=== PATIENT | female | born 1940 | race Caucasian/White ===

== ENCOUNTER 2021-01-23 08:25 | Outpatient (CLI) | payer MEDICARE, OTHER, SELFPAY ==
--- NOTE | 2021-01-23 09:01 | ECHO_ITS ---
Patient Info Name: Kira Nuno Age: 80 years : 1940 Gender: Female Ht: 62 in Wt: 164 lbs BSA: 1.83 m2 HR: 60 bpm BP: 142 / 74 mmHg Technical Quality: Good Exam Date: 01/23/2021 9:35 AM Exam Location: [facility] Patient Status: Outpatient Admit Date: 01/23/2021 Staff Ordering Physician: Madelaine Light MD Felting Machine Operator Helper: Milvia Almonte RDCS Attending Provider: Madelaine Light MD Exam Type: CA echo doppler color flow Study Info Indications - cardiac murmur Complete two-dimensional, color flow and Doppler transthoracic echocardiogram is performed. Summary 1. Complete two-dimensional, color flow and Doppler transthoracic echocardiogram is performed. 2. Left ventricular chamber dimension is normal. 3. Left ventricular systolic function is normal, estimated at 60-65%. 4. The left ventricular diastolic function is grade I diastolic dysfunction. 5. E/e' 8 is minimally elevated. 6. Thin interatrial septum with tiny left to right shunt by color flow doppler suggestive of PFO or ASD. 7. There is mild aortic valve sclerosis. 8. There is mild to moderate aortic valve regurgitation. 9. The mitral valve has mildly calcified annulus. 10. There is trace mitral valve regurgitation. 11. There is trace tricuspid valve regurgitation. 12. No pulmonary hypertension, estimated pulmonary arterial systolic pressure is 35 mmHg. Left Ventricle E/e' 8 is minimally elevated. Left ventricular chamber dimension is normal. Left ventricular systolic function is normal, estimated at 60-65%. The left ventricular diastolic function is grade I diastolic dysfunction. Right Ventricle Right ventricular chamber dimension is normal. Right ventricular systolic function is normal. Left Atria Left atrial chamber dimension is normal. Right Atria Right atrial chamber dimension is normal. Atrial Septum Suspected patent foramen ovale or atrial septal defect by color flow imaging. Thin interatrial septum with tiny left to right shunt by color flow doppler suggestive of PFO or ASD. Aortic Valve The aortic valve is trileaflet. There is mild aortic valve sclerosis. There is no aortic valve stenosis. There is mild to moderate aortic valve regurgitation. Pulmonic Valve There is no pulmonic regurgitation. Mitral Valve The mitral valve has mildly calcified annulus. There is no mitral valve stenosis. There is trace mitral valve regurgitation. Tricuspid Valve There is trace tricuspid valve regurgitation. No pulmonary hypertension, estimated pulmonary arterial systolic pressure is 35 mmHg. Pericardium/Pleural There is no pericardial effusion. Inferior Vena Cava Normal inferior vena cava with >50% collapse upon inspiration consistent with normal right atrial pressure, 5 mmHg. Aorta The aortic root size at the sinus of Valsalva is normal. Left Ventricular Outflow Tract Name Value Normal LVOT 2D LVOT Diameter 2.0 cm LVOT Doppler LVOT Peak Gradient 5 mmHg LVOT Mean Gradient 3 mmHg LVOT VTI 27 cm
== END 2021-01-23 08:26 | disposition home or self-care (01) ==
PROVIDERS: PCP Internal Medicine; Visit Provider Internal Medicine Critical Care Medicine
DX: R01.1 Cardiac murmur, unspecified (principal); I35.1 Nonrheumatic aortic (valve) insufficiency
CPT/HCPCS: 93306

== ENCOUNTER 2021-03-25 15:03 | Outpatient (CLI) | payer MEDICARE, OTHER, SELFPAY ==
[2021-03-25 15:21] LABS: Basophils Absolute Auto 0.1 K/mm3 (0.0-0.1); Basophils Percent Auto 0.5 % (0.2-1.2); Eosinophils Absolute Auto 0.2 K/mm3 (0-0.3); Hematocrit 38.7 % (37.0-47.0); Hemoglobin 12.3 g/dL (12.0-15.0); Immature Granulocyte Absolute 0.03 K/mm3 (0.00-0.031); Immature Granulocyte Percent A 0.3 % (0-0.5); Lymphocytes Absolute Auto 1.08 K/mm3 (0.9-3.2); Lymphocytes Percent Auto 11.5 % (18.3-44.2); Mean Corpuscular HGB Conc 31.8 g/dl (32-36); Mean Corpuscular Hemoglobin 28.1 pg (26-34); Mean Corpuscular Volume 88.6 fl (80-100); Mean Platelet Volume 9.3 fl (7.4-10.4); Monocytes Absolute Auto 0.9 K/mm3 (0.1-0.6); Monocytes Percent Auto 9.6 % (2.6-8.5); Neutrophils Absolute Auto 7.2 K/mm3 (1.3-6.7); Neutrophils Percent Auto 76.1 % (45.5-73.1); Platelet Count Result 356 k/mm3 (150-375); Red Blood Count 4.37 M/mm3 (4.2-5.4); Red Cell Distribution Width 14.6 % (11.5-14.5); White Blood Count 9.4 K/mm3 (4.5-10.0)
[2021-03-25 17:37] LABS: Iron 56 ug/dL (37-170)
[2021-03-25 17:44] LABS: Alanine Aminotransferase 8 U/L (4-35); Albumin Level 4.4 g/dL (3.5-5.1); Alkaline Phosphatase 60 U/L (38-126); Anion Gap 11 mmol/L (8-16); Aspartate Amino Transferase 17 U/L (14-36); Bilirubin,Total 0.3 mg/dL (0.2-1.3); Blood Urea Nitrogen 16 mg/dL (7-17); Calcium 10.3 mg/dL (8.4-10.2); Carbon Dioxide 28 mmol/L (22-30); Chloride 103 mmol/L (98-107); Estimated Glomerular Filt Rate 60; Glucose 100 mg/dL (65-105); Potassium 4.4 mmol/L (3.4-5.0); Sodium 142 mmol/L (137-145)
[2021-03-25 17:49] LABS: Percent Iron Saturation 17 % (20-50)
== END 2021-03-25 15:04 | disposition home or self-care (01) ==
LOC: ANHLAB 15:09
PROVIDERS: PCP Internal Medicine; Visit Provider Internal Medicine Hematology & Oncology
DX: D64.9 Anemia, unspecified (principal); C20 Malignant neoplasm of rectum
CPT/HCPCS: 36415; 80053; 82378; 82728; 83540; 83550; 85025

== ENCOUNTER 2021-03-30 08:37 | Outpatient (CLI) | payer MEDICARE, OTHER, SELFPAY ==
--- NOTE | ~2021-03-30 | CT_ITS ---
EXAMINATION: CT abdomen pelvis w con DATE: 03/30/2021 09:07 INDICATION: Rectal cancer. TECHNIQUE: Computed tomography (CT) of the abdomen and pelvis was performed with 100 mL Omnipaque 350 intravenous contrast. Automated exposure control and iterative reconstruction technique were employe d. The dose-length product was 553.41 mGy-cm. COMPARISON: CT abdomen and pelvis 01/02/2019 FINDINGS: The visualized portions of the lung bases demonstrate mild atelectasis. No pleural effusion . The heart size normal. No pericardial effusion. The liver and spleen are normal. There are gallston es in the gallbladder, which is normal in size. The pancreas and adrenal glands are normal. There is an 8 mm cyst in right kidney. There is a 1 mm stone in right kidney. There is an 8 mm cyst in left ki dney. There is moderate left hydronephrosis and hydroureter. There is a 3 mm stone in left ureter whe re it crosses the iliac vessels. There is a Jono pouch with surrounding chronic fat stranding, co nsistent with scarring. There is an end colostomy in left abdomen. There are no dilated loops of parris l. The appendix is not visualized. There are no pathologically enlarged lymph nodes. There is no free intraperitoneal fluid. There is thoracolumbar dextroscoliosis and severe spondylosis. IMPRESSION: 1. No evidence of metastatic disease. 2. 3 mm stone in mid left ureter with moderate left hydronephrosis and hydroureter. Reviewed, dictated and finalized at location A. IMPRESSION: 1. No evidence of metastatic disease. 2. 3 mm stone in mid left ureter with moderate left hydronephrosis and hydrour eter.
== END 2021-03-30 08:38 | disposition home or self-care (01) ==
PROVIDERS: PCP Internal Medicine; Visit Provider Internal Medicine Hematology & Oncology
DX: C20 Malignant neoplasm of rectum (principal); N20.1 Calculus of ureter
CPT/HCPCS: 74177; Q9967

== ENCOUNTER 2021-04-23 02:24 | Day surgery (SDC) | payer MEDICARE, OTHER, SELFPAY ==
[2021-04-06 13:58] VITALS: BMI 29.9
--- NOTE | 2021-04-22 13:27 | WPDANESEPPF ---
Anes - Initial Pre Proc Eval Procedure: Operation Date: 04/23/21 10:30 Proposed Procedures p Colonoscopy - Nj Velarde MD Date/Time: 04/22/21 13:27 Surgeon: Nj Velarde MD Pre Op Diagnosis: rectal bleeding Patient Data Age: 80 Gender: F Height: 1.55 m Weight: 71.8 kg Allergies Allergy/AdvReac Type Severity Reaction Status Date / Time Penicillins AdvReac Mild Rash Verified 04/23/21 09:21 Home Medications Medication Instructions Recorded Confirmed Type Daily Probiotic 1 cap PO DAILY 08/08/19 04/06/21 History lancets #100 each 09/17/19 03/26/21 Rx ergocalciferol (vitamin D2) 1,250 50,000 unit PO WEEKLY #13 cap 12/04/20 04/06/21 Rx mcg (50,000 unit) capsule naproxen sodium 220 mg capsule 220 mg PO Q8H 01/08/21 04/06/21 History polyethylene glycol 3350 17 17 g PO DAILY 01/08/21 03/26/21 History gram/dose oral powder blood sugar diagnostic #100 each 01/30/21 03/26/21 Rx metoprolol succinate 25 mg 12.5 mg PO DAILY #45 tablet 01/30/21 04/06/21 Rx tablet,extended release 24 hr metformin 500 mg tablet,extended 1,000 mg PO BID #360 tablet 02/22/21 04/06/21 Rx release 24hr citalopram [Celexa] See Rx Instructions .ROUTE .COMPLEX 04/06/21 04/06/21 History amlodipine 5 mg tablet 5 mg PO DAILY #90 tablet 04/16/21 Rx sod picosulf 10 mg-magnes 3.5 160 ml PO BID #160 ml 04/16/21 Rx gram-citric 12 gram/160 mL oral solution Patient hx anesthesia problems: none Family hx anesthesia problems: none PMFSH Past Medical History Medical History Anxiety Arthritis Depression Diabetes type 2, controlled GERD (gastroesophageal reflux disease) History of heart attack no intervention needed History of rectal cancer Hypertension Surgical History Surgical History History of appendectomy History of breast biopsy History of cholecystectomy History of cosmetic plastic surgery History of hysterectomy History of low anterior resection of rectum History of repair of right rotator cuff History of total knee arthroplasty Right Family History Family History Mother Patient's mother is Family history of osteoporosis Family history of arthritis Family history of diabetes mellitus in first degree relative Asthma Family history of malignant neoplasm of breast in first degree relative Hypertension Father Patient's father is Hypertension Family history of lung cancer Heart disease Sibling Family history of arthritis Family history of diabetes mellitus in first degree relative Family history of congestive heart failure Other Cerebrovascular accident Diabetes mellitus Family history of cardiovascular disease Family history of malignant neoplasm Family history of obesity Social History Social History Smoking packs per day: 0.5 Smoking cigarettes per day: 10.0 Years smoked: 15 Smoking pack-years: 7.50 Smoking status: Former smoker Tobacco type: cigarettes Second hand tobacco smoke exposure: No Smoking end date: 10/10/1968 Alcohol intake: former Substance use type: does not use Living arrangements: with family Gender identity (if verbalized by the patient): Female Anes - Eval Final PreProcedure Day of Procedure 04/22/21 13:27 Patient weight: overweight Heart: regular rate and rhythm Lungs: clear to auscultation and normal air movement Airway: Mallampati scale class II Neurological: alert and oriented Last oral intake: >/= 8 hours ASA classification: III Emergent: no Anesthetic plan: proceed Anesthesia type and monitoring: general GIVS and standard monitoring Informed Consent: The patient's anesthetic plan and its attendant risks and benefits were discussed with the patient/family/POA. Questions were solici
[2021-04-23 09:23] VITALS: BP 116/60; PULSE 61; RESP 18; TEMP 36.1; O2SAT 98; BMI 28.6
[2021-04-23 09:36] LABS: Glucose Point of Care 111 mg/dl (65-105)
[2021-04-23] MEDS: LACTATED RINGERS 1,000 ML 150 ML IV CONT (09:57)
--- NOTE | 2021-04-23 10:03 | WPDGICN ---
Assessment and Plan Assessment and plan (1) Rectal cancer: Code(s): C20 - Malignant neoplasm of rectum Status: Acute Assessment and Plan: Rectal cancer status post resection 2018. She is now has a left lower quadrant colostomy. Plan is for surveillance endoscopy at this time. (2) Rectal bleeding: Code(s): K62.5 - Hemorrhage of anus and rectum Status: Acute Assessment and Plan: Rectal bleeding evident from the rectal stump over last 1 and half months. This will be evaluated at the time of endoscopy. GI Consult Note Consult date/time: 04/23/21 10:03 HPI: Kira Nuno is a 80 year old female Presents for evaluation of rectal bleeding. Patient has a history of rectal carcinoma identified and had surgical therapy in 2018. Patient has occasionally had rectal bleeding. Occasional mucus from the rectal stump. Rectal bleeding has been most noticed over the last 1 and half months. For this reason referred for colonoscopy. Patient denies abdominal pain. She has a left lower quadrant colostomy that functions well with no blood noted in her bag. Family history is noncontributory. [facility] Past Medical History Medical History Anxiety Arthritis Depression Diabetes type 2, controlled GERD (gastroesophageal reflux disease) History of heart attack no intervention needed History of rectal cancer Hypertension Surgical History Surgical History History of appendectomy History of breast biopsy History of cholecystectomy History of cosmetic plastic surgery History of hysterectomy History of low anterior resection of rectum History of repair of right rotator cuff History of total knee arthroplasty Right Family History Family History Mother Patient's mother is Family history of osteoporosis Family history of arthritis Family history of diabetes mellitus in first degree relative Asthma Family history of malignant neoplasm of breast in first degree relative Hypertension Father Patient's father is Hypertension Family history of lung cancer Heart disease Sibling Family history of arthritis Family history of diabetes mellitus in first degree relative Family history of congestive heart failure Other Cerebrovascular accident Diabetes mellitus Family history of cardiovascular disease Family history of malignant neoplasm Family history of obesity Social History Social History Smoking packs per day: 0.5 Smoking cigarettes per day: 10.0 Years smoked: 15 Smoking pack-years: 7.50 Smoking status: Former smoker Tobacco type: cigarettes Second hand tobacco smoke exposure: No Smoking end date: 10/10/1968 Alcohol intake: former Substance use type: does not use Living arrangements: with family Gender identity (if verbalized by the patient): Female Meds Home Medications and Allergies Home Medications Medication Instructions Recorded Confirmed Type Daily Probiotic 1 cap PO DAILY 08/08/19 04/06/21 History lancets #100 each 09/17/19 03/26/21 Rx ergocalciferol (vitamin D2) 1,250 50,000 unit PO WEEKLY #13 cap 12/04/20 04/06/21 Rx mcg (50,000 unit) capsule naproxen sodium 220 mg capsule 220 mg PO Q8H 01/08/21 04/06/21 History polyethylene glycol 3350 17 17 g PO DAILY 01/08/21 03/26/21 History gram/dose oral powder blood sugar diagnostic #100 each 01/30/21 03/26/21 Rx metoprolol succinate 25 mg 12.5 mg PO DAILY #45 tablet 01/30/21 04/06/21 Rx tablet,extended release 24 hr metformin 500 mg tablet,extended 1,000 mg PO BID #360 tablet 02/22/21 04/06/21 Rx release 24hr citalopram [Celexa] See Rx Instructions .ROUTE .COMPLEX 04/06/21 04/06/21 History amlodipine 5 mg tablet 5 mg PO DAILY #90 table
[2021-04-23 10:38] VITALS: BP 99/55; PULSE 57; RESP 16; O2SAT 100
[2021-04-23 10:48] VITALS: BP 106/58; PULSE 60; RESP 20; O2SAT 99
[2021-04-23 10:58] VITALS: BP 102/56; PULSE 56; RESP 16; O2SAT 100
== END 2021-04-23 11:38 | disposition home or self-care (01) ==
PROVIDERS: PCP Internal Medicine; Visit Provider Internal Medicine Gastroenterology
PROC: 0DJD8ZZ Inspection of Lower Intestinal Tract, Via Natural or Artificial Opening Endoscopic (ICD-10-PCS; CPT 45378; principal; 2021-04-23 10:30)
DX: K62.5 Hemorrhage of anus and rectum (principal); D12.4 Benign neoplasm of descending colon; I10 Essential (primary) hypertension; I25.2 Old myocardial infarction; K62.89 Other specified diseases of anus and rectum; E11.9 Type 2 diabetes mellitus without complications; K21.9 Gastro-esophageal reflux disease without esophagitis; M19.90 Unspecified osteoarthritis, unspecified site; F32.9 Major depressive disorder, single episode, unspecified; F41.9 Anxiety disorder, unspecified; Z85.048 Personal history of other malignant neoplasm of rectum, rectosigmoid junction, and anus; Z93.3 Colostomy status; Z87.891 Personal history of nicotine dependence; Z90.710 Acquired absence of both cervix and uterus; Z90.49 Acquired absence of other specified parts of digestive tract; Z96.651 Presence of right artificial knee joint
CPT/HCPCS: 45385; 82948; 88305; J2704; J7120

== ENCOUNTER 2021-09-18 08:34 | Outpatient (CLI) | payer MEDICARE, OTHER, SELFPAY ==
--- NOTE | 2021-09-18 08:44 | ECHO_ITS ---
Patient Info Name: Kira Nuno Age: 81 years : 1940 Gender: Female Ht: 61 in Wt: 160 lbs BSA: 1.79 m2 HR: 56 bpm BP: 128 / 71 mmHg Heart Rhythm: Sinus Rhythm Technical Quality: Good Exam Date: 09/18/2021 9:24 AM Exam Location: [facility] Pulmonary Patient Status: Outpatient Admit Date: 09/18/2021 Staff Ordering Physician: Mode Gonzalez DO Skin Care Specialist: john Attending Provider: Mode Gonzalez DO Exam Type: CA echo doppler color flow Study Info Complete two-dimensional, color flow and Doppler transthoracic echocardiogram is performed. Summary 1. Complete two-dimensional, color flow and Doppler transthoracic echocardiogram is performed. 2. Left ventricular chamber dimension is normal. 3. Left ventricular systolic function is normal, estimated at 60-65%. 4. The left ventricular diastolic function is grade I diastolic dysfunction. 5. E/e' 7 is not elevated. 6. 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 7. There is mild aortic valve regurgitation. 8. The mitral valve has mildly calcified annulus. 9. No pulmonary hypertension, estimated pulmonary arterial systolic pressure is 31 mmHg. Left Ventricle E/e' 7 is not elevated. Left ventricular chamber dimension is normal. Left ventricular systolic function is normal, estimated at 60-65%. The left ventricular diastolic function is grade I diastolic dysfunction. Right Ventricle Right ventricular systolic function is normal and with normal TAPSE 1.9 cm. Right ventricular chamber dimension is normal. Left Atria Left atrial chamber dimension is normal. Right Atria Right atrial chamber dimension is normal. 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 Aortic Valve The aortic valve is trileaflet. There is no aortic valve stenosis. There is mild aortic valve regurgitation. Pulmonic Valve There is no pulmonic regurgitation. Mitral Valve The mitral valve has mildly calcified annulus. There is no mitral valve stenosis. There is no mitral valve regurgitation. Tricuspid Valve There is no tricuspid valve regurgitation. No pulmonary hypertension, estimated pulmonary arterial systolic pressure is 31 mmHg. Pericardium/Pleural There is no pericardial effusion. Inferior Vena Cava Normal inferior vena cava with >50% collapse upon inspiration consistent with normal right atrial pressure, 5 mmHg. Aorta The aortic root size at the sinus of Valsalva is normal. Left Ventricular Outflow Tract Name Value Normal LVOT Doppler LVOT Peak Gradient 3 mmHg LVOT Mean Gradient 1 mmHg LVOT VTI 19 cm LVOT VTI/AV VTI Ratio 0.6 Pulmonic Valve Name Value Normal RVOT Doppler RVOT Peak Gradient 2 mmHg PV Doppler PV Peak Gradient 3 mmHg M
== END 2021-09-18 08:35 | disposition home or self-care (01) ==
LOC: ANHCARD 08:36
PROVIDERS: PCP Internal Medicine; Visit Provider Internal Medicine Cardiovascular Disease
DX: I35.1 Nonrheumatic aortic (valve) insufficiency (principal)
CPT/HCPCS: 93306

== ENCOUNTER → 2021-09-28 03:19 | Outpatient (CLI) | payer MEDICARE, OTHER, SELFPAY ==
[2021-09-30 19:51] LABS: SARS-CoV-2 RNA PCR Negative
== END ==
PROVIDERS: PCP Internal Medicine; Visit Provider Physician Assistant
DX: Z20.822 Contact with and (suspected) exposure to COVID-19 (principal)
CPT/HCPCS: C9803; U0003; U0005

== ENCOUNTER 2021-12-21 09:36 | Outpatient (RCR) | payer MEDICARE, OTHER, SELFPAY ==
[2021-12-21 09:30] VITALS: BMI 27.4
== END 2022-03-09 11:01 | disposition home or self-care (01) ==
LOC: ANHWOC 09:36
PROVIDERS: PCP Internal Medicine; Visit Provider Surgery
DX: K94.03 Colostomy malfunction (principal)
CPT/HCPCS: 99213; G0463

== ENCOUNTER 2022-02-16 09:32 | Outpatient (CLI) | payer MEDICARE, OTHER, SELFPAY ==
--- NOTE | 2022-02-16 10:02 | ECHO_ITS ---
Patient Info Name: Kira Nuno Age: 81 years : 1940 Gender: Female Ht: 61 in Wt: 147 lbs BSA: 1.71 m2 HR: 60 bpm BP: 124 / 75 mmHg Technical Quality: Fair Exam Date: 02/16/2022 10:24 AM Exam Location: [facility] Pulmonary Patient Status: Outpatient Admit Date: 02/16/2022 Staff Ordering Physician: Mode Gonzalez DO Icu Registered Nurse: Maximilian Ruff RDCS, RT Attending Provider: Mode Gonzalez DO Referring Physician: Carlos JIMENEZ; Exam Type: CA echo dop color flow w con Study Info Indications I35.1 - Nonrheumatic aortic (valve) insufficiency Complete two-dimensional, color flow and Doppler transthoracic echocardiogram is performed. Strain analysis performed. Summary 1. Complete two-dimensional, color flow and Doppler transthoracic echocardiogram is performed. 2. Left ventricular chamber dimension is normal. 3. Left ventricular systolic function is normal, estimated at 55-60%. 4. The left ventricular diastolic function is grade I diastolic dysfunction. 5. E/e' 5 is not elevated. 6. Global longitudinal strain is abnormal at -14.6%. 7. There is mild aortic valve regurgitation. 8. The mitral valve has mildly calcified annulus. 9. No pulmonary hypertension, estimated pulmonary arterial systolic pressure is 38 mmHg. Left Ventricle E/e' 5 is not elevated. Global longitudinal strain is abnormal at -14.6%. Left ventricular chamber dimension is normal. Left ventricular systolic function is normal, estimated at 55-60%. The left ventricular diastolic function is grade I diastolic dysfunction. Right Ventricle Right ventricular systolic function is normal and with normal TAPSE 2.3 cm. Right ventricular chamber dimension is normal. Left Atria Left atrial chamber dimension is normal. Right Atria Right atrial chamber dimension is normal. Aortic Valve The aortic valve is trileaflet. There is no aortic valve stenosis. There is mild aortic valve regurgitation. Pulmonic Valve There is no pulmonic regurgitation. Mitral Valve The mitral valve has mildly calcified annulus. There is no mitral valve stenosis. There is no mitral valve regurgitation. Tricuspid Valve There is no tricuspid valve regurgitation. No pulmonary hypertension, estimated pulmonary arterial systolic pressure is 38 mmHg. Pericardium/Pleural There is no pericardial effusion. Inferior Vena Cava Normal inferior vena cava with >50% collapse upon inspiration consistent with normal right atrial pressure, 5 mmHg. Aorta The aortic root size at the sinus of Valsalva is normal. Left Ventricular Outflow Tract Name Value Normal LVOT 2D LVOT Diameter 1.85 cm LVOT Doppler LVOT Peak Gradient 4 mmHg LVOT Mean Gradient 2 mmHg LVOT VTI 20.96 cm LVOT VTI/AV VTI Ratio 0.72 LVOT Stroke Volume 56.36 ml LVOT CO 3.25 l/min LVOT CI 1.90 L/min/m2 Mitral Valve
== END 2022-02-16 09:33 | disposition home or self-care (01) ==
PROVIDERS: PCP Internal Medicine; Visit Provider Internal Medicine Cardiovascular Disease
DX: I35.1 Nonrheumatic aortic (valve) insufficiency (principal)
CPT/HCPCS: 93306

== ENCOUNTER → 2022-08-26 12:32 | Outpatient (CLI) | payer MEDICARE, OTHER, SELFPAY ==
--- NOTE | ~2022-08-26 | CT_ITS ---
EXAMINATION: CT abdomen pelvis w con INDICATION: Malignant neoplasm of the rectum TECHNIQUE: Computed tomographic images of the abdomen and pelvis were obtained after the administrati on of 100 cc of Omnipaque 350 intravenous contrast. The dose-length product (DLP) was 593.67 mGy-cm. Automated exposure control and iterative reconstruction technique were employed. COMPARISON: 03/30/2021 FINDINGS: Minimal dependent atelectasis is present in the lung bases. The heart size is normal. Stone s are present in the nondistended gallbladder. The liver, spleen, pancreas, and adrenal glands are no rmal. Cysts of the kidneys measure up to 8 mm on the left. There is a 4 mm nonobstructing stone of th e left kidney lower pole. No pathologically enlarged abdominal or pelvic lymph nodes are identified. There is calcified atherosclerosis of the aorta and many of the other arteries. There is an end colos anish in the left lower abdomen. Again noted is a Jono pouch with chronic surrounding fat strandin g. There is no free intraperitoneal gas or evidence of bowel obstruction. There is thoracolumbar dext roscoliosis. There is severe lumbar spondylosis. A large volume of colonic stool is present. IMPRESSION: 1. No evidence of metastatic disease. 2. Cholelithiasis with evidence of cholecystitis. Reviewed, dictated and finalized at location F. SION MANAGER
[2022-08-26 12:56] LABS: Estimated Glomerular Filt Rate 60
== END ==
PROVIDERS: PCP Internal Medicine; Visit Provider Surgery
DX: C20 Malignant neoplasm of rectum (principal); K80.20 Calculus of gallbladder without cholecystitis without obstruction
CPT/HCPCS: 74177; Q9967

== ENCOUNTER 2022-09-13 09:08 | Outpatient (CLI) | payer MEDICARE, OTHER, SELFPAY ==
--- NOTE | ~2022-09-13 | XR_ITS ---
XR enema water soluble INDICATION: Malignant neoplasm of the rectum. TECHNIQUE: Examination of the colon utilizing or soluble contrast enema technique. COMPARISON: CT dated 08/26/2022 FINDINGS: There are surgical changes consistent with partial colectomy. There is a rectal stump which fills immediately encompass 2 a beaklike appearance with immediate filling of adjacent small bowel, consistent with entero-rectal fistula. The visualized aspects of the small bowel are otherwise unrema rkable. There are gallstones. Severe lumbar spondylosis with dextroscoliosis. There is filling of the proximal colon via the small bowel. IMPRESSION: 1: Entero-rectal fistula. Dr. Taco Snowden discussed with Dr. Roberto Maurice DO at 09/13/2022 11:11 RESIDENTIAL SUBSTANCE ABUSE COUNSELOR. Reviewed, dictated and finalized at location A. DENTIAL SUBSTANCE ABUSE COUNSELOR IMPRESSION: 1: Entero-rectal fistula. Dr. Taco Snowden discussed with Dr. Roberto Maurice DO at 09/13/2022 11:11 RESIDENTIAL SUBSTANCE ABUSE COUNSELOR .
== END 2022-09-13 09:09 | disposition home or self-care (01) ==
PROVIDERS: PCP Internal Medicine; Visit Provider Surgery
DX: C20 Malignant neoplasm of rectum (principal); K62.7 Radiation proctitis
CPT/HCPCS: 74270

== ENCOUNTER 2022-10-19 08:20 | Outpatient (CLI) | payer MEDICARE, OTHER, SELFPAY ==
--- NOTE | 2022-10-19 | EST_ITS ---
Patient Info Name: Kira Nuno Age: 82 years : 1940 Gender: Female Exam Date: 10/19/2022 9:16 AM Exam Location: [facility] Stress Patient Status: Outpatient Admit Date: 10/19/2022 Staff Ordering Physician: Mode Gonzalez DO Attending Provider: Mode Gonzalez DO Exercise Technologist: Carla Angel RDCS Exercise Physician: Mode Gonzalez DO Exam Type: CA stress ibrahima w NM Study Info Indications R06.09 - Other forms of dyspnea A regadenoson stress test was performed. Summary 1. 1. Negative lexiscan stress test for ischemic ST changes by ECG criteria. 2. 2. Stable hemodynamics throughout the test. 3. 3. Nuclear scan to follow and will be reported separately. Please correlate with it. 4. 4. Patient informed of the above results. Protocol: Lexiscan Stress ECG Details Stage: REST Duration (min): 1 min : 0 sec HR (bpm): 59 SBP (mmHg): 117 DBP (mmHg): 51 Stage: REST Duration (min): 9 min : 43 sec HR (bpm): 63 SBP (mmHg): 117 DBP (mmHg): 51 Stage: STAGE 1 Duration (min): 1 min : 0 sec HR (bpm): 85 SBP (mmHg): 99 DBP (mmHg): 47 Stage: RECOVERY Duration (min): 1 min : 0 sec HR (bpm): 87 SBP (mmHg): 115 DBP (mmHg): 47 Stage: RECOVERY Duration (min): 2 min : 0 sec HR (bpm): 85 SBP (mmHg): 115 DBP (mmHg): 47 Stage: RECOVERY Duration (min): 3 min : 0 sec HR (bpm): 84 SBP (mmHg): 125 DBP (mmHg): 54 Stage: RECOVERY Duration (min): 3 min : 3 sec HR (bpm): 83 SBP (mmHg): 125 DBP (mmHg): 54 Rest HR: 63 bpm Peak HR: 89 bpm Rest Sys BP: 117 mmHg Peak Sys BP: 125 mmHg Max Pred HR: 137 bpm % Max Pred HR: 65 % Target HR: 116 bpm Max RPP: 11,125 bpm*mmHg Termination Reason: Completed protocol Cardiac Symptoms: Shortness of breath Total Time: 1 min : 0 sec Rest Lara BP: 51 mmHg Peak Lara BP: 54 mmHg Total Dose: 0.4 mg Resting ECG Sinus rhythm. Stress ECG No ST changes. Arrhythmias None. Report Signatures
--- NOTE | ~2022-10-19 | NM_ITS ---
EXAMINATION: NM ibrahima stress w perfusion DATE: 10/19/2022 10:46 INDICATION: Other forms of dyspnea TECHNIQUE: Rest images were obtained following intravenous administration of 10.3 mCi Tc99m tetrofosm in (Myoview). The patient was infused intravenously with Lexiscan (Regadenoson). Then, 32.0 mCi Tc99m tetrofosmin (Myoview) was administered intravenously, and stress images were obtained. Data was naomi nstructed into short axis and horizontal and vertical long axis SPECT images. Gated SPECT images were also obtained. COMPARISON: None. FINDINGS: Small mild nonreversible perfusion defect along the mid inferior wall more prominent on the rest than on the stress images and favor diaphragmatic attenuation artifact over infarct. No reversi ble ischemia. There is normal left ventricular chamber size, wall motion and ejection fraction. Left ventricular ejection fraction measures >70%. IMPRESSION: 1. Small mild nonreversible perfusion defect along the mid inferior wall more prominent on the rest t garcia on the stress images and favor that hepatic attenuation artifact over infarct. No reversible isch emia. 2. Left ventricular ejection fraction measuring >70%. Reviewed, dictated and finalized at location A. HOUSE SUPERVISOR IMPRESSION: 1. Small mild nonreversible perfusion defect along the mid inferior wall more p rominent on the rest than on the stress images and favor that hepatic attenuati on artifact over infarct. No reversible ischemia. 2. Left ventricular ejection fraction measuring >70%.
== END 2022-10-19 08:21 | disposition home or self-care (01) ==
PROVIDERS: PCP Internal Medicine; Visit Provider Internal Medicine Cardiovascular Disease
DX: R06.09 Other forms of dyspnea (principal)
CPT/HCPCS: 78452; 93017; A9502; J2785

== ENCOUNTER 2022-11-25 09:34 | Outpatient (CLI) | payer MEDICARE, OTHER, SELFPAY ==
[2022-11-25 11:19] LABS: Anion Gap 9 mmol/L (8-16); Blood Urea Nitrogen 23 mg/dL (7-17); Calcium 9.8 mg/dL (8.4-10.2); Carbon Dioxide 23 mmol/L (22-30); Chloride 105 mmol/L (98-107); Estimated Glomerular Filt Rate 60; Glucose 102 mg/dL (65-110); Potassium 4.1 mmol/L (3.4-5.0); Sodium 137 mmol/L (137-145)
== END 2022-11-25 09:35 | disposition home or self-care (01) ==
PROVIDERS: Anesthesiology; PCP Internal Medicine; Visit Provider Surgery
DX: K63.2 Fistula of intestine (principal); E11.9 Type 2 diabetes mellitus without complications; Z01.818 Encounter for other preprocedural examination
CPT/HCPCS: 36415; 80048; 86850; 86900; 86901

== ENCOUNTER 2022-12-06 16:02 | Inpatient (IN) | payer MEDICARE, OTHER, SELFPAY ==
--- NOTE | 2022-11-25 10:19 | PC.NURSE ---
Report to the Outpatient Waiting Room, entrance under the green pavilion located off [address], at time __1000 on date ___12/06/22____. Planned Procedure Time: 1200 . Time changes happen often and if your time is changed the preop area will call you the afternoon before. - You and your visitor will be asked to self-screen and do not enter if you have any COVID symptoms. - Only one visitor is requested with a max of two and NO children visitors are allowed at this time. - The patient visitor may be requested to leave or wait in car when not with patient due to distancing restrictions. - A mask is optional within the hospital at this time. Patients may have clear liquids (water, carbonated beverages, clear teas, apple juice) until 3 hours prior to surgery with a maximum of 20 ounces. - No food from midnight until time of surgery - Infants may have breast milk until 4 hours before surgery, formula 6 hours prior to surgery. - Children will be allowed to drink immediately following surgery. If applicable, please bring a bottle or sippy cup to assist with drinking. Juice, water, soda, and popsicles are readily available. For infants on formula, please bring formula the day of surgery. Pacifiers are allowed. Take the following medications with a SIP of water the morning of surgery: ____AMLODIPINE,CITALOPRAM,METOPROLOL DO NOT STOP ANY OF YOUR OTHER PRESCRIPTION MEDICATIONS PRIOR TO SURGERY ?EXCEPT THE FOLLOWING Medications to discontinue per physician ___ALL VITAMINS/SUPPLEMENTS 3 DAYS PRE OP .LAST DOSE 12/02/22 HIBICLENS SHOWER DAY BEFORE SURGERY AND MORNING OF SURGERY ENSURE BUNDLE PACK FROM DR GALLARDO Please no make-up, nail surinamese, hairspray, perfume, deodorant, or body powder the day of surgery. No jewelry (including any body piercings) or valuables the day of surgery, leave them at home. Please take a shower or bath the night before, or the morning of, surgery with an antibacterial soap. Wear comfortable, loose fitting clothing. Children are encouraged to wear pajamas. - Jewelry must be removed prior to entering the operating room. Rings and piercings that are not removed may be cut off. - The hospital will not accept responsibility for valuables. - Please leave all valuables, including medications, at home the day of surgery. If you are going home after surgery, a licensed milk truck driver must drive you home. - NO public transportation without another adult if you receive anesthesia. - We recommend that an adult stay with you for 24 hours following discharge. - We also recommend that you do not drive, make important decision, drink alcoholic beverages, or take any drugs that were not prescribed by your health care provider for at least 24 hours after your discharge time. Follow any additional instructions given to you from your surgeon. If you or anyone in your household have experienced Covid symptoms in the past week, please notify your surgeon or the nurse liaison at the phone number below for possible testing. VERBAL AND WRITTEN instructions given to __PATIENT and asked if any additional questions and then verbalized understanding. Patient advised to call surgeon office or pre surgery nurse liaison [phone] if any additional questions.
[2022-11-25 10:51] VITALS: BP 110/47; PULSE 70; RESP 18; TEMP 37.1; O2SAT 99; BMI 23.1
[2022-12-06] VITALS (14 sets, daily range): BP systolic 100–132; BP diastolic 49–71; PULSE 60–96; RESP 8–18; TEMP 36–36.9; O2SAT 93–100
[2022-12-06] MEDS: ACETAMINOPHEN 500 MG TABLET 1000 MG PO ×3 (10:45→21:27)
[2022-12-06] MEDS: KETOROLAC 15 MG/ML VIAL (*BKC) IV PUSH (10:45)
[2022-12-06] MEDS: LACTATED RINGERS 1,000 ML 30 ML IV CONT ×3 (10:45→14:46)
[2022-12-06 10:51] LABS: Glucose Point of Care 106 mg/dl (65-105)
--- NOTE | 2022-12-06 11:24 | WPDANESEPPF ---
Anes - Initial Pre Proc Eval Procedure: Operation Date: 12/06/22 12:00 Proposed Procedures p Exploratory Laparotomy, Take Down Entero-Rectal Fistula Small Bowel Resection, Omental Flap - Roberto Maurice DO Date/Time: 12/06/22 11:24 Surgeon: Roberto Maurice DO Pre Op Diagnosis: Entero-Rectal Fistula Patient Data Age: 82 Gender: F Height: 1.57 m Weight: 52.6 kg Last Vital Signs Temp 98.5 F 12/06/22 10:53 Pulse 96 12/06/22 10:53 Resp 14 12/06/22 10:53 BP 119/71 12/06/22 10:53 Pulse Ox 99 12/06/22 10:53 O2 Del Method Room Air 12/06/22 10:53 Allergies Allergy/AdvReac Type Severity Reaction Status Date / Time Penicillins AdvReac Mild Rash Verified 12/06/22 10:59 Home Medications Medication Instructions Recorded Confirmed Type Lactobacillus 1 cap PO DAILY 08/08/19 11/25/22 History acidophilus-Bifidobac.animalis 2.5 billion cell capsule (Daily Probiotic) polyethylene glycol 3350 17 17 g PO DAILY 01/08/21 11/25/22 History gram/dose oral powder (Miralax) blood sugar diagnostic (Contour #100 ea 08/27/22 10/07/22 Rx Next Test Strips) lancets (Microlet Lancet) #100 ea 08/27/22 10/07/22 Rx amlodipine 5 mg tablet 5 mg PO DAILY #90 tabs 08/30/22 12/06/22 Rx ergocalciferol (vitamin D2) 1,250 50,000 unit PO WEEKLY #13 caps 10/02/22 11/25/22 Rx mcg (50,000 unit) capsule metoprolol succinate 25 mg 12.5 mg PO DAILY #45 tabs 10/02/22 12/06/22 Rx tablet,extended release 24 hr hydrocodone 5 mg-acetaminophen 325 1 tablet PO Q4H PRN pain #10 tabs 10/29/22 11/25/22 Rx mg tablet lorazepam 0.5 mg tablet 0.5 mg PO BID PRN anxiety #30 tabs 11/12/22 11/25/22 Rx metformin 500 mg tablet 1,000 mg PO BID #360 tabs 11/19/22 11/25/22 Rx citalopram 20 mg tablet (Celexa) 20 mg PO DAILY #30 tabs 11/27/22 Rx ciprofloxacin HCl 500 mg tablet See Rx Instructions .Route 12/01/22 Rx (Cipro) .COMPLEX #1 tablet metronidazole 500 mg tablet See Rx Instructions .Route 12/01/22 Rx .COMPLEX #3 tabs Laboratory Tests 12/06/22 10:48 POC Capillary Glucose 106 mg/dl H mg/dl (65-105) Patient hx anesthesia problems: none Family hx anesthesia problems: none Results Review: All pre-operative results and documents have been reviewed as part of the pre-operative evaluation. [facility] Past Medical History Medical History (Updated 11/12/22 @ 11:47 by Bennett Issa DO) Anxiety Arthritis Depression Diabetes type 2, controlled GERD (gastroesophageal reflux disease) History of heart attack no intervention needed History of rectal cancer Hypertension Surgical History Surgical History H/O excision of mass EXC 9MM BACK SKIN LESION 01/28/22 History of appendectomy History of breast biopsy History of cholecystectomy History of cosmetic plastic surgery History of hysterectomy History of low anterior resection of rectum History of repair of right rotator cuff History of total knee arthroplasty Right Family History Family History Mother Patient's mother is Family history of osteoporosis Family history of arthritis Family history of diabetes mellitus in first degree relative Asthma Family history of malignant neoplasm of breast in first degree relative Hypertension Father Patient's father is Hypertension Family history of lung cancer Heart disease Sibling Family history of arthritis Family history of diabetes mellitus in first degree relative Family history of congestive heart failure Other Cerebrovascular accident Diabetes mellitus Family history of cardiovascular disease Family history of malignant neoplasm Family history of obesity Social History Social History Smoking packs per day: 0.5 Smoking cigarettes per day: 10.0 Years smoked: 15 Smo
[2022-12-06] MEDS: ALVIMOPAN 12 MG CAPSULE PO (11:40)
--- NOTE | 2022-12-06 11:40 | WPDHPUPDATE1 ---
History and Physical Update Update Date/Time: 12/06/22 11:40 History and Physical has been reviewed, including an updated exam of the patient. There are NO changes in the patient's condition. Risks, benefits, and alternatives have been discussed and questions answered. Patient agrees to proceed with procedure.
--- NOTE | 2022-12-06 11:40 | PM.IMHP ---
H&P: HPI History of Present Illness Date/Time: 12/06/22 11:40 Chief Complaint: enterorectal fistula Narrative: 82 yo woman presents for takedown of enterorectal fistula. She has been having rectal drainage related to the fistula but no other complaints. Review of Systems Review of Systems: All systems reviewed & are unremarkable except as noted in HPI and below Constitutional: Constitutional: Denies chills, Denies fever(s), Denies headache(s) and Denies weight loss Eyes: Eyes: Denies change in vision ENT: Denies dizziness, Denies headache(s), Denies neck mass and Denies throat swelling Cardiovascular: Cardiovascular: Denies chest pain, Denies lightheadedness and Denies dyspnea Respiratory: Respiratory: Denies cough, Denies dyspnea and Denies wheezing Gastrointestinal: Gastrointestinal: Denies abdominal pain, Denies change in bowel habits, Denies nausea and Denies vomiting Genitourinary: Genitourinary: Denies hematuria and Denies dysuria Musculoskeletal: Musculoskeletal: Reports as per HPI Integumentary/Breasts: Skin/Breast: Reports as per HPI Neurologic: Denies dizziness and Denies headache(s) Allergic/Immunologic: Allergic/Immunologic: Denies throat swelling and Denies wheezing [facility] Past Medical History Medical History (Updated 11/12/22 @ 11:47 by Bennett Issa DO) Anxiety Arthritis Depression Diabetes type 2, controlled GERD (gastroesophageal reflux disease) History of heart attack no intervention needed History of rectal cancer Hypertension Surgical History Surgical History H/O excision of mass EXC 9MM BACK SKIN LESION 01/28/22 History of appendectomy History of breast biopsy History of cholecystectomy History of cosmetic plastic surgery History of hysterectomy History of low anterior resection of rectum History of repair of right rotator cuff History of total knee arthroplasty Right Family History Family History Mother Patient's mother is Family history of osteoporosis Family history of arthritis Family history of diabetes mellitus in first degree relative Asthma Family history of malignant neoplasm of breast in first degree relative Hypertension Father Patient's father is Hypertension Family history of lung cancer Heart disease Sibling Family history of arthritis Family history of diabetes mellitus in first degree relative Family history of congestive heart failure Other Cerebrovascular accident Diabetes mellitus Family history of cardiovascular disease Family history of malignant neoplasm Family history of obesity Social History Social History Smoking packs per day: 0.5 Smoking cigarettes per day: 10.0 Years smoked: 15 Smoking pack-years: 7.50 Smoking status: Former smoker Tobacco type: cigarettes Second hand tobacco smoke exposure: No Smoking end date: 10/10/68 Alcohol intake: former Substance use type: does not use Lack of Transportation: No Lack of Food: Never True Current Housing: I Have Housing Concerned About Future Housing: No Difficulty Paying Gas/Electric Bills: No Difficulty Paying for Meds: No Currently Unemployed: No Education: Associate Degree Difficulty w/ Childcare or Family Care: No Living arrangements: alone Occupation/Education: retired Gender identity (if verbalized by the patient): Female Spiritual care concerns: No Meds Home Medications and Allergies Home Medications Medication Instructions Recorded Confirmed Type Lactobacillus 1 cap PO DAILY 08/08/19 11/25/22 History acidophilus-Bifidobac.animalis 2.5 billion cell capsule (Daily Probiotic) polyethylene glycol 3350 17 17 g PO DAILY 01/08/21 11/25/22 History gram/dose oral powder (Miralax) blood sugar diagnostic (Con
[2022-12-06] MEDS: metroNIDAZOLE 500 MG/ISO 100ML 500 MG/100 ML BAG 100 MG IVPB (11:58)
[2022-12-06] MEDS: ceFAZolin 2 GM/D5W 50 ML 2 GM/50 ML BAG IVPB (11:58)
--- NOTE | 2022-12-06 14:40 | W.PM.PROC2 ---
Procedure Note - Detailed Date of Procedure 12/06/22 Pre-op Diagnosis Entero-Rectal Fistula Post-op Diagnosis Same Procedure Performed 1. Ileal resection with [id number] ileal anastomosis 2. Takedown entero-rectal fistula 3. 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 She has a prior history of low anterior resection and end descending colostomy for rectal cancer. She began noticing occasional bloody mucus rectal drainage about 2 years ago, but more recently the drainage has become more frequent and is slightly greenish brown in color. A CT of her abdomen and pelvis was performed 1st to ensure that there were no signs of recurrent rectal cancer. A Hypaque enema was then also obtained and this showed evidence of the fistula. The patient was having frequent drainage every time she ate a meal and this was beginning to also cause her to lose weight. Discussions were made with the patient about treatment options and decision was made to proceed with exploratory laparotomy with takedown of entero rectal fistula, small-bowel resection, and omental flap. Findings patient had adhesions in the pelvis with a loop of ileum adherent to the rectal stump. The adhesions were taken down and the loop of small bowel was delivered out of the pelvis. The small bowel was resected in this segment. Was about a 6 in segment of ileum that was involved. A [id number] ileal anastomosis was performed. I further took down adhesions so that the remainder of the small bowel could be adequately assessed run from the ligament of Treitz to ileocecal. No other abnormalities were noted. A flap of omentum was created from carefully taken down from the transverse colon and bringing a pedicle omentum down into the pelvis. This was secured down around the rectal stump to prevent recurrent fistula. Cassandra Joyce NP assisted with the entire procedure as my surgical 1st assist. Description of Procedure Procedure as well as risks, benefits, and alternatives were discussed with the patient. Written consent was obtained and placed in chart prior to procedure. Patient was brought back to surgical suite. She was placed supine on operating table. Time-out was done to confirm patient and procedure. She was then intubated by the anesthesia department. Her abdomen was prepped and draped in sterile fashion using chlorhexidine prep. A 15 cm low vertical midline incision was made using a 10 blade scalpel. Electrocautery was used for hemostasis and for dissection through the subcutaneous tissue. The linea alba was identified and incised using electrocautery. I then entered into the abdominal cavity using electrocautery and extended the fascial incision throughout the length of the skin incision. There were omental adhesions up to the abdominal wall that were initially taken down using electrocautery. I was then able to place an Quinton wound protector. The abdominal cavity was then carefully inspected. The small bowel appeared normal but there were intra-abdominal adhesions. These were carefully taken down using curved Metzenbaum scissors. I then was able to trace the small bowel down into the pelvis. There were more dense adhesions down in the pelvis that were further taken down using electrocautery and Metzenbaum scissors. I was able to identify the loop of small bowel that appeared to be going down right to the rectal stump. This loop of small bowel was carefully freed up from the rectal stump using Metzenbaum scissors. It was completely delivered out of the pelvis and then the bowel was carefully inspected. The fistula appeared to involve a segment of the ileum about 20-30 cm from the ileocecal valve. This segment involving the fistula required resection. A window was cre
[2022-12-06 14:56] LABS: Glucose Point of Care 115 mg/dl (65-105)
[2022-12-06] MEDS: fentaNYL CITRATE INJ (*CRX) 100 MCG/2 ML VIAL 25 MCG IV PUSH ×2 (15:26→15:41)
[2022-12-06] MEDS: LACTATED RINGERS 1,000 ML 100 ML IV CONT (16:56)
[2022-12-06] MEDS: metFORMIN HCL 500 MG TABLET 1000 MG PO (16:57)
[2022-12-06 17:40] LABS: Glucose Point of Care 136 mg/dl (65-105)
[2022-12-06 22:06] LABS: Glucose Point of Care 183 mg/dl (65-105)
[2022-12-07] VITALS (8 sets, daily range): BP systolic 98–116; BP diastolic 43–60; PULSE 55–74; RESP 16–18; TEMP 35.8–36.4; O2SAT 94–100
[2022-12-07] MEDS: LACTATED RINGERS 1,000 ML 100 ML IV CONT (02:56)
[2022-12-07] MEDS: ACETAMINOPHEN 500 MG TABLET 1000 MG PO ×4 (04:29→21:10)
[2022-12-07 05:57] LABS: Basophils Percent Auto 0.3 % (0.2-1.2); Hematocrit 29.4 % (37.0-47.0); Hemoglobin 9.6 g/dL (12.0-15.0); Immature Granulocyte Absolute 0.04 K/mm3 (0.00-0.031); Immature Granulocyte Percent A 0.4 % (0-0.5); Lymphocytes Absolute Auto 0.65 K/mm3 (0.9-3.2); Lymphocytes Percent Auto 6.1 % (18.3-44.2); Mean Corpuscular HGB Conc 32.7 g/dl (32-36); Mean Corpuscular Hemoglobin 30.2 pg (26-34); Mean Corpuscular Volume 92.5 fl (80-100); Mean Platelet Volume 9.5 fl (7.4-10.4); Monocytes Absolute Auto 0.7 K/mm3 (0.1-0.6); Monocytes Percent Auto 6.7 % (2.6-8.5); Neutrophils Absolute Auto 9.2 K/mm3 (1.3-6.7); Neutrophils Percent Auto 86.5 % (45.5-73.1); Platelet Count Result 234 k/mm3 (150-375); Red Blood Count 3.18 M/mm3 (4.2-5.4); Red Cell Distribution Width 14.6 % (11.5-14.5); White Blood Count 10.7 K/mm3 (4.5-10.0)
[2022-12-07 06:02] LABS: Anion Gap 4 mmol/L (8-16); Blood Urea Nitrogen 18 mg/dL (7-17); Calcium 8.5 mg/dL (8.4-10.2); Carbon Dioxide 27 mmol/L (22-30); Chloride 100 mmol/L (98-107); Estimated CRCL calculation 34 ml/min; Estimated Glomerular Filt Rate 53; Glucose 132 mg/dL (65-110); Potassium 4.5 mmol/L (3.4-5.0); Sodium 131 mmol/L (137-145)
--- NOTE | 2022-12-07 07:53 | WPDANESPN ---
Anes - Prog Note Post-Op Date/Time: 12/07/22 07:53 Cardiovascular status: normal Respiratory status: normal Airway patency: baseline Mental status: baseline Post-Op hydration status: normal Vital Signs: Last Vital Signs Temp 96.6 F L 12/07/22 04:55 Pulse 60 12/07/22 04:55 Resp 18 12/07/22 04:55 BP 100/53 L 12/07/22 04:55 Pulse Ox 98 12/07/22 04:55 O2 Del Method Room Air 12/06/22 17:00 O2 Flow Rate 2 12/06/22 15:55 Pain Score (VAS): 0/10 I/O: Intake & Output 12/06/22 12/06/22 12/07/22 15:59 23:59 07:59 Intake Total 150 1360 1170 Output Total 30 400 Balance 120 1360 770 Laboratory Tests 12/07/22 05:38 12/07/22 05:38 12/06/22 12/06/22 12/06/22 10:48 14:53 17:32 WBC RBC Hgb Hct MCV MCH MCHC RDW Plt Count MPV Immature Gran % (Auto) Neut % (Auto) Lymph % (Auto) Angelina % (Auto) Eos % (Auto) Baso % (Auto) Lymph # (Auto) Angelina # (Auto) Eos # (Auto) Baso # (Auto) Abs Immat Gran (auto) Absolute Neuts (auto) Absolute Nucleated RBC Nucleated RBC % Sodium Potassium Chloride Carbon Dioxide Anion Gap BUN Creatinine Estim Creat Clear Calc Estimated GFR Glucose POC Capillary Glucose 106 H 115 H 136 H Calcium 12/06/22 12/07/22 12/07/22 21:27 05:38 05:38 WBC 10.7 H RBC 3.18 L Hgb 9.6 L Hct 29.4 L MCV 92.5 MCH 30.2 MCHC 32.7 RDW 14.6 H Plt Count 234 MPV 9.5 Immature Gran % (Auto) 0.4 Neut % (Auto) 86.5 H Lymph % (Auto) 6.1 L Angelina % (Auto) 6.7 Eos % (Auto) 0.0 Baso % (Auto) 0.3 Lymph # (Auto) 0.65 L Angelina # (Auto) 0.7 H Eos # (Auto) 0.0 Baso # (Auto) 0.0 Abs Immat Gran (auto) 0.04 H Absolute Neuts (auto) 9.2 H Absolute Nucleated RBC 0.0 Nucleated RBC % 0.0 Sodium 131 L Potassium 4.5 Chloride 100 Carbon Dioxide 27 Anion Gap 4 L BUN 18 H Creatinine 1.00 Estim Creat Clear Calc 34 Estimated GFR 53 L Glucose 132 H POC Capillary Glucose 183 H Calcium 8.5 Post-procedural complaints: none Patient Feedback: Patient satisfied with anesthetic care.
[2022-12-07 08:45] LABS: Glucose Point of Care 89 mg/dl (65-105)
[2022-12-07] MEDS: ENOXAPARIN 40 MG/0.4 ML SYRINGE SUB-Q (09:29)
[2022-12-07] MEDS: amLODIPine BESYLATE 5 MG TABLET PO (09:29)
[2022-12-07] MEDS: METOPROLOL SUCCINATE EXT REL 12.5 MG TABCR PO (09:29)
[2022-12-07] MEDS: metFORMIN HCL 500 MG TABLET 1000 MG PO ×2 (09:29→16:39)
[2022-12-07 12:24] LABS: Glucose Point of Care 133 mg/dl (65-105)
--- NOTE | 2022-12-07 12:56 | PM.PNGS ---
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 Tolerating clear liquids and ostomy functioning. Will advance to full liquids Repeat labs tomorrow morning Plan I have discussed the patient's case and plan of care with Dr. Maurice. Subjective Subjective Date/Time Seen: 12/07/22 11:56 Post Op day: 1 (Ileal resection with [id number] ileal anastomosis, Takedown entero-rectal fistula, Omental advancement flap to pelvis) Patient reports: afebrile Interval history: Patient feeling well today. Reports some incisional soreness, but tolerable. She is tolerating clear liquids well. Denies any nausea or vomiting. She reports having her ostomy bag emptied earlier this morning as it was full of liquid output and gas. She has gotten up to the chair today and tolerating this well. No other complaints at this time. Review of Systems Review of Systems: All systems reviewed & are unremarkable except as noted in HPI and below Exam Const: General: comfortable and no acute distress Orientation/consciousness: patient oriented x3 GI: Inspection: non-distended, incision (dry and padmini intact) and other (ostomy with small amount of liquid stool in bag) GI Palp: Yes Soft to palpation, Yes Tenderness to palpation present (GI) (expected incisional tenderness) and No Guarding due to palpation present (GI) Auscultation: normal bowel sounds Urinary Catheter: Urinary Catheter: patent and draining and urine dark (slightly dark yellow, but general maintenance engineer in color than yesterday) Extrem: General: no calf tenderness and no edema Psych: Mental Status: mental status grossly normal Insight: Good insight present (Psych) Objective Data Vital Signs Vital Signs: Vital Signs - 24 hr 12/06/22 14:38 12/06/22 14:55 12/06/22 15:10 Temperature 97.8 F Pulse Rate 60 61 65 Respiratory Rate 8 L 16 18 Blood Pressure 129/62 121/59 L 130/64 Pulse Oximetry 100 100 96 Oxygen Delivery Simple Face Mask Simple Face Mask Room Air Oxygen Flow Rate 6 6 12/06/22 15:25 12/06/22 15:40 12/06/22 15:55 Temperature Pulse Rate 63 63 62 Respiratory Rate 18 14 16 Blood Pressure 119/57 L 100/49 L 101/52 L Pulse Oximetry 93 97 100 Oxygen Delivery Room Air Nasal Cannula Nasal Cannula Oxygen Flow Rate 2 2 12/06/22 16:02 12/06/22 16:17 12/06/22 16:47 Temperature 97.7 F 97.7 F 97.7 F Pulse Rate 62 62 62 Respiratory Rate 16 16 16 Blood Pressure 112/53 L 116/53 L 116/53 L Pulse Oximetry 98 100 100 Oxygen Delivery Oxygen Flow Rate 12/06/22 17:17 12/06/22 18:16 12/06/22 17:00 Temperature 97.5 F L 97.4 F L Pulse Rate 60 70 Respiratory Rate 16 16 Blood Pressure 117/55 L 132/66 Pulse Oximetry 100 95 98 Oxygen Delivery Room Air Oxygen Flow Rate 12/06/22 19:56 12/07/22 00:31 12/07/22 04:55 Temperature 96.8 F L 96.5 F L 96.6 F L Pulse Rate 66 64 60 Respiratory Rate 18 18 18 Blood Pressure 102/58 L 110/48 L 100/53 L Pulse Oximetry 97 94 98 Oxygen Delivery Oxygen Flow Rate 12/07/22 08:27 12/07/22 09:29 12/07/22 10:08 Temperature 97.6 F Pulse Rate 63 74 60 Respiratory Rate 18 Blood Pressure 98/43 L 106/52 L Pulse Oximetry 99 Oxygen Delivery Oxygen Flow Rate Intake/Output Intake/Output: Intake & Output 12/04/22 12/05/22 12/06/22 12/07/22 23:59 23:59 23:59 23:59 Intake Total 1510 1800 Output Total 30 400 Balance 1480 1400 Meds/Results Medications: Active Medications Generic Name Dose Route Start Last Admin Trade Name Joseq PRN Reason Stop Dose Admin Acetaminophen 1,000 mg 12/06/22 16:02 12/07/22 09:31 Acetaminophen 500 Mg Tablet PO 1,000 mg Q6H [facility] Administration Alvimopan 12 mg 12/07/22 21:00 Alvimopan 12 Mg Capsule PO 12/14/22 20:59 Q12HR [facility] Amlodipine Besylate 5 mg 12/07/22 09:00 12/07/22 09:29 Amlodipine Besylate
[2022-12-07] MEDS: oxyCODONE HCL (*CRX) 2.5 MG TAB IR PO (14:38)
[2022-12-07 16:54] LABS: Glucose Point of Care 98 mg/dl (65-105)
[2022-12-07] MEDS: ALVIMOPAN 12 MG CAPSULE PO (21:06)
[2022-12-07 21:34] LABS: Glucose Point of Care 94 mg/dl (65-105)
[2022-12-08] VITALS (7 sets, daily range): BP systolic 98–119; BP diastolic 43–56; PULSE 55–97; RESP 16–18; TEMP 35.9–36.9; O2SAT 94–99
[2022-12-08] MEDS: ACETAMINOPHEN 500 MG TABLET 1000 MG PO ×4 (05:05→22:15)
[2022-12-08 05:15] LABS: Hematocrit 30.4 % (37.0-47.0); Hemoglobin 9.7 g/dL (12.0-15.0); Mean Corpuscular HGB Conc 31.9 g/dl (32-36); Mean Corpuscular Hemoglobin 29.6 pg (26-34); Mean Corpuscular Volume 92.7 fl (80-100); Mean Platelet Volume 9.7 fl (7.4-10.4); Platelet Count Result 253 k/mm3 (150-375); Red Blood Count 3.28 M/mm3 (4.2-5.4); Red Cell Distribution Width 14.7 % (11.5-14.5)
[2022-12-08 05:20] LABS: Anion Gap 3 mmol/L (8-16); Blood Urea Nitrogen 19 mg/dL (7-17); Calcium 8.5 mg/dL (8.4-10.2); Carbon Dioxide 27 mmol/L (22-30); Chloride 107 mmol/L (98-107); Estimated CRCL calculation 37 ml/min; Estimated Glomerular Filt Rate > 60; Glucose 88 mg/dL (65-110); Potassium 4.1 mmol/L (3.4-5.0); Sodium 137 mmol/L (137-145)
[2022-12-08] MEDS: ALVIMOPAN 12 MG CAPSULE PO ×2 (08:20→22:15)
[2022-12-08] MEDS: METOPROLOL SUCCINATE EXT REL 12.5 MG TABCR PO (08:20)
[2022-12-08] MEDS: amLODIPine BESYLATE 5 MG TABLET PO (08:20)
[2022-12-08] MEDS: ENOXAPARIN 40 MG/0.4 ML SYRINGE SUB-Q (08:21)
[2022-12-08] MEDS: metFORMIN HCL 500 MG TABLET 1000 MG PO ×2 (08:22→16:40)
[2022-12-08 08:33] LABS: Glucose Point of Care 81 mg/dl (65-105)
[2022-12-08 11:47] LABS: Glucose Point of Care 85 mg/dl (65-105)
--- NOTE | 2022-12-08 12:28 | PM.PNGS ---
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 Will advance diet to low-fiber diet. Possibly home tomorrow if continuing to improve. Subjective Subjective Date/Time Seen: 12/08/22 12:28 Interval history: Tolerating diet. Pain controlled. Getting with minimal assistance. No nausea or vomiting. Exam GI: Inspection: non-distended and incision (intact with padmini) GI Palp: Yes Soft to palpation and Yes Tenderness to palpation present (GI) (incisional) Auscultation: normal bowel sounds Objective Data Vital Signs Vital Signs: Vital Signs - 24 hr 12/07/22 14:10 12/07/22 14:57 12/07/22 18:00 Temperature 36.4 C 36.4 C Pulse Rate 60 60 Respiratory Rate 18 16 Blood Pressure 106/56 L 110/60 Pulse Oximetry 99 100 Oxygen Delivery Room Air 12/07/22 20:23 12/08/22 03:39 12/08/22 08:16 Temperature 35.8 C L 35.9 C L Pulse Rate 55 L 55 L 64 Respiratory Rate 18 18 Blood Pressure 116/48 L 101/48 L 119/55 L Pulse Oximetry 97 94 Oxygen Delivery 12/08/22 08:20 12/08/22 09:39 Temperature 36.1 C L Pulse Rate 64 71 Respiratory Rate 16 Blood Pressure 98/45 L Pulse Oximetry 95 Oxygen Delivery Intake/Output Intake/Output: Intake & Output 12/05/22 12/06/22 12/07/22 12/08/22 23:59 23:59 23:59 23:59 Intake Total 1510 2070 730 Output Total 30 990 750 Balance 1480 1080 -20 Meds/Results Medications: Active Medications Generic Name Dose Route Start Last Admin Trade Name Freq PRN Reason Stop Dose Admin Acetaminophen 1,000 mg 12/06/22 16:02 12/08/22 11:45 Acetaminophen 500 Mg Tablet PO 1,000 mg Q6H JEANNINE Administration Alvimopan 12 mg 12/07/22 21:00 12/08/22 08:20 Alvimopan 12 Mg Capsule PO 12/14/22 20:59 12 mg Q12HR JEANNINE Administration Amlodipine Besylate 5 mg 12/07/22 09:00 12/08/22 08:20 Amlodipine Besylate 5 Mg Tablet PO 5 mg DAILY JEANNINE Administration Dextrose 12.5 gm 12/06/22 16:02 Dextrose 50% 25 Gm/50 Ml Syringe IV PUSH PRN PRN Hypoglycemia Protocol Enoxaparin Sodium 40 mg 12/07/22 09:00 12/08/22 08:21 Enoxaparin 40 Mg/0.4 Ml Syringe SUB-Q 40 mg DAILY JEANNINE Administration Glucagon 1 mg 12/06/22 16:02 Glucagon For Inj 1 Mg Vial IM PRN PRN Hypoglycemia Protocol Glucose 15 gm 12/06/22 16:02 Glucose Oral Gel 15 Gm Of Glucse In 37.5 Gm Tube PO PRN PRN Hypoglycemia Protocol Dextrose 1,000 mls @ 100 mls/hr 12/06/22 16:02 Dextrose 5% 1,000 Ml IVPB PRN PRN Hypoglycemia Protocol Lorazepam 0.5 mg 12/06/22 16:02 Lorazepam (*Crx) 0.5 Mg Tablet PO BID PRN anxiety Metformin HCl 1,000 mg 12/06/22 17:00 12/08/22 08:22 Metformin Hcl 500 Mg Tablet PO 500 mg BID JEANNINE Administration Metoprolol Succinate 12.5 mg 12/07/22 09:00 12/08/22 08:20 Metoprolol Succinate Ext Rel 12.5 Mg Tabcr PO 12.5 mg DAILY JEANNINE Administration Morphine Sulfate 2 mg 12/06/22 16:02 Morphine Sulfate (*Crx) 2 Mg/Ml Inj IV PUSH Q2H PRN Pain Rated 4-6 Morphine Sulfate 4 mg 12/06/22 16:02 Morphine Sulfate (*Crx) 4 Mg/Ml Inj IV PUSH Q2H PRN Pain Rated 7-10 Ondansetron HCl 4 mg 12/06/22 16:02 Ondansetron Inj 4 Mg/2 Ml Vial IV PUSH Q4H PRN Nausea And Vomiting Oxycodone HCl 2.5 mg 12/06/22 16:02 12/07/22 14:38 Oxycodone Hcl (*Crx) 2.5 Mg Tab Ir PO 2.5 mg Q4H PRN Administration Pain Rated 4-6 Oxycodone HCl 5 mg 12/06/22 16:02 Oxycodone Hcl (*Crx) 5 Mg Tab Ir PO Q4H PRN Pain Rated 7-10 Labs Labs: Laboratory Results - last 24 hr 12/07/22 12/07/22 12/08/22 16:38 21:15 04:55 WBC 9.0 RBC 3.28 L Hgb 9.7 L Hct 30.4 L MCV 92.7 MCH 29.6 MCHC 31.9 L RDW 14.7 H Plt Count 253 MPV 9.7 Sodium Potassium
--- NOTE | 2022-12-08 14:15 | PC.NURSE ---
On 12/08/22, the student, [Adela Tran], provided care and completed [facility] documentation on this patient. I have reviewed the student's documentation and agree with the findings.
[2022-12-08 16:48] LABS: Glucose Point of Care 77 mg/dl (65-105)
[2022-12-08 21:33] LABS: Glucose Point of Care 91 mg/dl (65-105)
[2022-12-09 05:26] VITALS: BP 112/52; PULSE 55; RESP 17; TEMP 36.9; O2SAT 94
[2022-12-09] MEDS: ACETAMINOPHEN 500 MG TABLET 1000 MG PO ×3 (05:51→16:05)
[2022-12-09 06:08] LABS: Hematocrit 29.6 % (37.0-47.0); Hemoglobin 9.5 g/dL (12.0-15.0); Mean Corpuscular HGB Conc 32.1 g/dl (32-36); Mean Corpuscular Hemoglobin 29.3 pg (26-34); Mean Corpuscular Volume 91.4 fl (80-100); Mean Platelet Volume 9.9 fl (7.4-10.4); Platelet Count Result 263 k/mm3 (150-375); Red Blood Count 3.24 M/mm3 (4.2-5.4); Red Cell Distribution Width 15.1 % (11.5-14.5); White Blood Count 8.3 K/mm3 (4.5-10.0)
[2022-12-09 06:24] LABS: Anion Gap 1 mmol/L (8-16); Blood Urea Nitrogen 18 mg/dL (7-17); Calcium 8.5 mg/dL (8.4-10.2); Carbon Dioxide 30 mmol/L (22-30); Chloride 104 mmol/L (98-107); Estimated CRCL calculation 37 ml/min; Estimated Glomerular Filt Rate > 60; Glucose 76 mg/dL (65-110); Potassium 4.4 mmol/L (3.4-5.0); Sodium 135 mmol/L (137-145)
[2022-12-09] MEDS: ENOXAPARIN 40 MG/0.4 ML SYRINGE SUB-Q (08:02)
[2022-12-09] MEDS: METOPROLOL SUCCINATE EXT REL 12.5 MG TABCR PO (08:02)
[2022-12-09] MEDS: amLODIPine BESYLATE 5 MG TABLET PO (08:02)
[2022-12-09] MEDS: ALVIMOPAN 12 MG CAPSULE PO (08:02)
[2022-12-09 08:15] LABS: Glucose Point of Care 73 mg/dl (65-105)
[2022-12-09 10:00] VITALS: BP 114/55; PULSE 66; RESP 18; TEMP 36.2; O2SAT 98
[2022-12-09 10:57] LABS: Appearance Urine Clear (Clear); Bacteria Urine None Seen /hpf; Bilirubin Urine Negative (Negative); Blood Urine Negative (Negative); Color Urine Yellow (Yellow); Glucose Urine UA Negative (Negative); Ketones Urine 2+ mg/dL (Negative); Leukocyte Esterase Ur Negative LEU/UL (Negative); Nitrate Urine Negative (Negative); Non Pathogenic Casts 0-2; Protein Urine 1+ mg/dL (Negative); RBC Urine 0-2 /hpf (0-2); Specific Grav Ur 1.023 (1.001-1.035); Squamous Epithelial Cell Urine None seen /hpf (Few); Urobilinogen Urine 0.2 mg/dL (<2.0); WBC Urine 0-5 /hpf; pH Urine 5.5 (5.0-9.0)
[2022-12-09 11:10] LABS: Add Urine Microscopic? YES
[2022-12-09 11:50] LABS: Glucose Point of Care 130 mg/dl (65-105)
--- NOTE | 2022-12-09 13:11 | PM.DS ---
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 Maurice (2) Diabetes type 2, controlled: Code(s): E11.9 - Type 2 diabetes mellitus without complications Status: Acute Assessment and Plan: No acute issues. Glucose was monitored postoperatively. She was restarted on her much form and postoperatively and had orders for a hypoglycemia protocol. Postop day 1 she was given her typical 1000 mg dose twice daily. Postop day 2, nursing had administered half the dosage possibly from patient request. She did not have any issues with hypoglycemia. Her metformin was held by nursing this morning as well. Her glucose this morning was 73 prior to breakfast and 130 prior to lunch. We will continue her metformin on discharge at 500 mg twice Daily. Instructed patient to monitor her glucose a few times daily at home and record this to take to her follow-up with her PCP. Recommended follow-up with PCP in 1 week to re-evaluate. (3) Hypertension: Code(s): I10 - Essential (primary) hypertension Status: Acute Assessment and Plan: No acute issues. Home medications restarted postoperatively. Blood pressure remained stable. Follow-up with PCP as recommended. (4) Anemia: Code(s): D64.9 - Anemia, unspecified Status: Acute Assessment and Plan: Hgb remained stable post-operatively. No signs of active bleeding. Likely related to surgery. Follow-up with PCP. DS: Summary Hospital Course Reason for hospitalization: This is an 82-year-old woman who presented on 12/06/2022 for takedown of entero-rectal fistula. She has been having rectal drainage related to the fistula but no other complaints. She was admitted for postoperative management and recovery. Hospital Course: Patient underwent ileal resection with [id number] ileal anastomosis, takedown of entero rectal fistula, omental advancement flap to pelvis by Dr. Maurice on 12/06/2022. No immediate complications with surgery. She was transferred to the medical-surgical floor postoperatively. Her colostomy began functioning on postop day 1. She was slowly advanced to a low-fiber diet by postop day 2. She has been tolerating her diet well. No issues with any nausea, bloating, or vomiting. Her ostomy continued to function well postoperatively. She had some postoperative incisional soreness that has been well controlled with Tylenol. Labs have been followed daily after surgery and she was noted to be anemic. Postop day 1 her hemoglobin was 9.6 and remained stable at 9.5 by postop day 3. No signs of active bleeding. Other labs were unremarkable. Today, the patient did report having some blood in her urine. She also noticed scant blood when wiping that she showed the night time nanny nurse. No rectal bleeding noted. She had a go with surgery that was removed on post-op day 1 and she has been voiding without any other complaints. Urinalysis obtained today due to the concern of hematuria, which showed no blood and was essentially unremarkable. I also asked nursing to be with her when voiding and look for any blood in her urine or rectal bleeding. They denied either being present all day today. She was evaluated by PT and OT for discharge recommendations. They released her as she was independent. She is tolerating activity well. The patient and her daughter requested home health to see her at least once after discharge as she lives at home alone, which was set up through the personal carer. The patient is stable for discharge today. She is scheduled to see Dr. Maurice in follow-u
[2022-12-09 13:56] VITALS: O2SAT 96
[2022-12-09 14:00] VITALS: BP 104/58; PULSE 66; RESP 18; TEMP 36.5; O2SAT 98
== END 2022-12-09 16:07 | disposition home health service (06) | DRG 331 ==
LOC: ANH2MED 16:06
PROVIDERS: Admitting Provider Surgery; PCP Internal Medicine; Visit Provider Nurse Practitioner Family
PROC: 0WUF07Z Supplement Abdominal Wall with Autologous Tissue Substitute, Open Approach (ICD-10-PCS; CPT 49000; principal; 2022-12-06 12:00)
DX: K63.2 Fistula of intestine (principal); D64.89 Other specified anemias; I10 Essential (primary) hypertension; E11.9 Type 2 diabetes mellitus without complications; M19.90 Unspecified osteoarthritis, unspecified site; K21.9 Gastro-esophageal reflux disease without esophagitis; F41.9 Anxiety disorder, unspecified; F32.A Depression, unspecified; Z96.651 Presence of right artificial knee joint; I25.2 Old myocardial infarction; Z85.048 Personal history of other malignant neoplasm of rectum, rectosigmoid junction, and anus; Z90.49 Acquired absence of other specified parts of digestive tract; Z90.710 Acquired absence of both cervix and uterus; Z87.891 Personal history of nicotine dependence
CPT/HCPCS: 36415; 80048; 81001; 82948; 85025; 85027; 88307; 97161; 97165; A9270; J0330; J0690; J1100; J1170; J1650; J1885; J2405; J2704; J2710; J3010; J7120

== ENCOUNTER 2023-02-04 08:01 | Outpatient (RCR) | payer MEDICARE, OTHER, SELFPAY ==
[2023-02-04 10:11] VITALS: BMI 24.7
== END 2023-04-25 08:32 | disposition home or self-care (01) ==
LOC: ANHWOC 08:01
PROVIDERS: PCP Internal Medicine; Visit Provider Surgery
DX: Z43.3 Encounter for attention to colostomy (principal)
CPT/HCPCS: 99213; G0463